=== PATIENT | male | born 1965 ===

== ENCOUNTER 2019-01-22 13:35 | Emergency (ER) | payer BC ==
[2019-01-22] MEDS ORDERED: HYDROMORPHONE HCL 2 MG/ML VIAL IM ONE (13:49)
--- NOTE | 2019-01-22 13:54 | Emergency Department Record ---
History of Present Illness - General Chief complaint: Extremity Problem Stated complaint: LT WRIST/FOREARM INJURY Time Seen by Provider: 01/22/19 13:48 Source: Patient Mode of Arrival: Ambulatory Limitations: No limitations - History of Present Illness Initial comments: Pt right hand dominate with i njury to left forearm helping a friend install a new garage door spring at [facility]. Not working. Pt states the tool they were using to tighten the spring release and snapped back hitting his left arm. Intense pain with abrasion at the site. No other injury. Hx of prior orthopedic surgery to the left wrist with hardware in place. No elbow pain. No numbness to the hand or fingers. - Related Data Previous Rx's Medication Instructions Recorded Hydrocodone/Acetaminophen [[place] 1 each PO Q4HR PRN 2 Days #6 tablet 01/22/19 5-325 Tablet] Allergies Allergy/AdvReac Type Severity Reaction Status Date / Time No Known Drug Allergies Allergy Verified 01/22/19 14:02 Review of Systems Constitutional: Reports: As per HPI. Denies: Chills, Fever, Malaise, Night sweats, Weakness, Weight change Eyes: Reports: As per HPI. Denies: Eye discharge, Eye pain, Photophobia, Vision change ENT: Denies: Congestion, Ear pain Respiratory: Denies: Cough Cardiovascular: Denies: Arrhythmia, Chest pain Endocrine: Denies: Fatigue Gastrointestinal: Denies: Abdominal pain, Vomiting Musculoskeletal: Reports: As per HPI. Denies: Arthralgia, Back pain Skin: Denies: Change in hair/nails Neurological: Denies: Abnormal gait, Headache, Numbness, Tingling, Weakness Psychiatric: Denies: Anxiety Hematological/Lymphatic: Denies: Anemia Physical Exam - General General Appearance: Alert, Oriented x3, Cooperative, Moderate distress - Head Head exam: Atraumatic - Eye Eye exam: Normal appearance, PERRL - ENT ENT exam: Normal exam, Mucous membranes moist, Normal external ear exam, Normal orophraynx, TM's normal bilaterally - Neck Neck exam: Normal inspection, Full ROM. negative: Tenderness - Respiratory Respiratory exam: Normal lung sounds bilaterally. negative: Respiratory distress - Cardiovascular Cardiovascular Exam: Regular rate, Normal rhythm, Normal heart sounds - GI/Abdominal GI/Abdominal exam: Soft, Normal bowel sounds. negative: Tenderness - Extremities Extremities exam: Tenderness (to distal ulna left with abrasion and swelling to area. No elbow pain. 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 Distal sensation intack to digits x 5. Motion at wrist guarded. ) - Back Back exam: Reports: Normal inspection - Neurological Neurological exam: Alert, Normal gait, Oriented X3 - Psychiatric Psychiatric exam: Normal affect, Normal mood - Skin Skin exam: Abrasion (left wrist. ), Normal color Course - Reevaluation(s) Reevaluation #1: 01/22/19 15:09 XRAY neg for fracture. Td given. Pt cleaned at sink and RN cleaned and dressed. Discussed plan for home with RICE and Motrin. [place] #4 given. Disposition Disposition: Discharge Clinical Impression: Contusion of forearm, left Qualifiers: Encounter type: initial encounter Qualified Code(s): S50.12XA - Contusion of left forearm, initial encounter Abrasion of left forearm Qualifiers: Encounter type: initial encounter Qualified Code(s): S50.812A - Abrasion of left forearm, initial encounter Disposition: Home, Self-Care Condition: (1) Good Instructions: RICE Therapy (ED), Contusion in Adults (ED), Abrasion (ED) Additional Instructions: Ice to area. Keep clean and dry Antibiotic ointment to area. Take meds as instructed. Return to the ED as needed. Family doctor recheck in one week. Prescriptions: Hydrocodone/Acetaminophen [[place] 5-325 Tablet] 1 each PO Q4HR PRN 2 Days #6 tablet PRN Reason: Pain - Mild To Moderate (1-7) Forms: Patient Portal Access Time of Disposition: 15:10 Quality - Quality Measures Quality Measures: N/A - Blood Pressure Screening Does Patient Have Any of the Following: No Blood Pressure Classification: Hypertensive Reading Systolic Measurement: 190 Diastolic Measurement: 114 Screening for High Blood Pressure: < Pre-Hypertensive BP, F/U Documented > [G8950] Pre-Hypertensive Follow-up Interventions: Follow-up with rescreen every year.
[2019-01-22] MEDS ORDERED: TETANUS AND DIPHTHERIA PF 0.5 ML SYR IM ONE (13:55)
--- NOTE | 2019-01-23 09:45 | RADIOLOGY REPORT ---
EXAM: LEFT FOREARM HISTORY: TRAUMA TO LEFT FOREARM, GARAGE SPRING STRUCK PATIENT WHILE BEING INSTALLED TODAY. TECHNIQUE: Three views of the left forearm were obtained. Comparison: None. FINDINGS: There is apparent old pin and wire fixation of the distal ulna. 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 No definite acute fracture of the left forearm identified. There is a relatively prominent spur along the posterior aspect of the olecranon process of the proximal ulna at the elbow. There does appear to be some asymmetric soft tissue swelling along the ulnar aspect of the forearm distally. IMPRESSION: 1. NO DEFINITE ACUTE FRACTURE OF THE LEFT FOREARM IDENTIFIED. 2. POSTOP CHANGE DISTAL ULNA. 3. DEGENERATIVE ARTHRITIS RADIAL ASPECT OF THE WRIST. 4. PROMINENT SPUR PROXIMAL ULNA POSTERIORLY. JOB NUMBER: [id number] [facility]
== END 2019-01-22 15:27 | disposition home or self-care (01) ==
LOC: ER 13:35
DX: S50.12XA Contusion of left forearm, initial encounter (principal); S50.812A Abrasion of left forearm, initial encounter; W20.8XXA Other cause of strike by thrown, projected or falling object, initial encounter; Y93.89 Activity, other specified; Y92.015 Private garage of single-family (private) house as the place of occurrence of the external cause; Y99.8 Other external cause status
CPT/HCPCS: 96372; 99283